=== PATIENT | male | born 1965 ===

== ENCOUNTER 2016-12-20 21:20 | Emergency (ER) | payer MEDICAID ==
[2016-12-20 22:00] VITALS: BP 154/77; PULSE 76; RESP 18; TEMP 98; O2SAT 99
--- NOTE | 2016-12-20 23:49 | ED PDOC ---
HPI: Back Time Seen by Provider: 12/20/16 22:31 Chief Complaint (Nursing): Back Pain Chief Complaint (Provider): Back Pain History Per: Patient History/Exam Limitations: no limitations Onset/Duration Of Symptoms: Days (x4) Current Symptoms Are (Timing): Still Present Associated Symptoms: None Additional Complaint(s): 51 year old male presents to ED with complaints of atraumatic left sided lower back pain x4 days and has a past medical history of sciatica. (-) numbness, weakness, or genitourinary symptoms. States ibuprofen provided no relief. Notes pain is worse with movement and radiates down his left leg. PCP: TBD - Risk Factors AAA Risk Factors: Pos: Older Than 49 Years Of Age Past Medical History Reviewed: Historical Data, Nursing Documentation, Vital Signs Vital Signs: Last Vital Signs Temp 98 F 12/20/16 21:57 Pulse 76 12/20/16 21:57 Resp 18 12/20/16 21:57 BP 154/77 H 12/20/16 21:57 Pulse Ox 99 12/20/16 21:57 - Medical History Other PMH: Sciatica - Surgical History Surgical History: No Surg Hx - Family History Family History: States: No Known Family Hx - Social History Alcohol: Occasional - Allergies Allergies/Adverse Reactions: Allergies Allergy/AdvReac Type Severity Reaction Status Date / Time No Known Allergies Allergy Verified 12/20/16 21:57 Review of Systems ROS Statement: Except As Marked, All Systems Reviewed And Found Negative Genitourinary Male: Negative for: Dysuria, Frequency, Incontinence Musculoskeletal: Positive for: Back Pain, Leg Pain (pain radiates to left leg) Neurological: Negative for: Weakness, Numbness Physical Exam - Reviewed Nursing Documentation Reviewed: Yes Vital Signs Reviewed: Yes - Physical Exam Appears: Positive for: Non-toxic, In Acute Distress (mild painful distress with movement) Head Exam: Positive for: ATRAUMATIC, NORMOCEPHALIC Skin: Positive for: Normal Color, Warm, Dry Eye Exam: Positive for: Normal appearance, EOMI, PERRL ENT: Positive for: Normal ENT Inspection Neck: Positive for: Normal, Painless ROM, Supple Cardiovascular/Chest: Positive for: Regular Rate, Rhythm. Negative for: Murmur Respiratory: Positive for: Normal Breath Sounds. Negative for: Respiratory Distress Gastrointestinal/Abdominal: Positive for: Normal Exam, Soft. Negative for: Tenderness Back: Positive for: Vertebral Tenderness (lumbar paraspinal tenderness). Negative for: L CVA Tenderness, R CVA Tenderness, Other ((-) midline tenderness) Extremity: Positive for: Normal ROM. Negative for: Deformity Neurologic/Psych: Positive for: Alert, Oriented. Negative for: Motor/Sensory Deficits - ECG O2 Sat by Pulse Oximetry: 99 (RA) Pulse Ox Interpretation: Normal Medical Decision Making Medical Decision Makin Initial impression: sciatica, lower back pain Initial plan: * CT LUMBAR SPINE * Flexeril 10mg PO * Toradol 30mg IM * Re-eval Scribe Attestation: Documented by Chichi Duran acting as a scribe for Ana Burt MD. Scribe Attestation: All medical record entries made by the Scribe were at my direction and personally dictated by me. I have reviewed the chart and agree that the record accurately reflects my personal performance of the history, physical exam, medical decision making, and the department course for this patient. I have also personally directed, reviewed, and agree with the discharge instructions and disposition. Disposition - Clinical Impression Clinical Impression: Back pain - Disposition Disposition: Transfer of Care Disposition Time: 00:00 Condition: STABLE Forms: [employer] (Chinese) Patient Signed Over To: Renetta Diez Handoff Comments: Pending CT.
--- NOTE | 2016-12-21 00:25 | CT ---
EXAM: CT Lumbar Spine Without Intravenous Contrast CLINICAL HISTORY: 51 years old, male; Pain; Low back pain; Additional info: L low back pain TECHNIQUE: Axial computed tomography images of the lumbar spine without intravenous contrast. This CT exam was performed using one or more of the following dose reduction techniques: automated exposure control, adjustment of the mA and/or kV according to patient size, and/or use of iterative reconstruction technique. Coronal and sagittal reformatted images were created and reviewed. COMPARISON: LUMBAR SACRAL 3 VIEWS ROUTINE 06/05/2010 12:47:00 PM FINDINGS: Vertebrae: No acute fracture. Chronic LEFT L5 pars defect. Discs/spinal canal/neural foramina: Minimal spondylosis. Mild disc bulges L4-L5, L5-S1 levels. No significant central canal stenosis. Soft tissues: Unremarkable. Vasculature: Retroaortic LEFT renal vein. IMPRESSION: 1. No fracture. 2. If back pain persists, consider MRI for further evaluation. 3. Incidental/non-acute findings are described above.
--- NOTE | 2016-12-21 00:30 | ED PDOC ---
- ECG O2 Sat by Pulse Oximetry: 99 (RA) Medical Decision Making Medical Decision Makin Patient signed out to me from Dr. Burt pending CT. [address]24 [address] FINDINGS Vertebrae: No acute fracture. Chronic LEFT L5 pars defect. Discs/spinal canal/neural foramina: Minimal spondylosis. Mild disc bulges L4-L5 , L5-S1 levels. No significant central canal stenosis. Soft tissues: Unremarkable. Vasculature: Retroaortic LEFT renal vein. IMPRESSION: 1. No fracture. 2. If back pain persists, consider MRI for further evaluation. 3. Incidental/non-acute findings are described above 0140 Patient is medically stable and ready for discharge. Counseling has been provided and patient is in agreement. Return if symptoms persist or acutely worsen. Scribe Attestation: Documented by Chichi Duran acting as a scribe for Renetta Diez MD. Scribe Attestation: All medical record entries made by the Scribe were at my direction and personally dictated by me. I have reviewed the chart and agree that the record accurately reflects my personal performance of the history, physical exam, medical decision making, and the department course for this patient. I have also personally directed, reviewed, and agree with the discharge instructions and disposition. Disposition Counseled Patient/Family Regarding: Studies Performed, Diagnosis, Need For Followup - Clinical Impression Clinical Impression: Back pain - POA Present On Arrival: None - Disposition Disposition: Routine/Home Disposition Time: 01:00 Condition: STABLE Forms: [employer] (Montenegrin)
== END 2016-12-21 05:00 | disposition home or self-care (01) ==
LOC: H.ER 21:20
DX: M54.5 Low back pain (principal)